=== PATIENT | female | born 1945 | race African-American/Black ===

== ENCOUNTER 2022-01-17 10:46 | Outpatient (CLI) | payer MEDICARE ==
[2022-01-17 21:44] LABS: SARS-CoV-2 PCR by NAA Not Detected (NotDetected)
== END 2022-01-17 10:47 | disposition home or self-care (01) ==
LOC: CSHLAB 10:46
PROVIDERS: ATTEND Internal Medicine Gastroenterology
DX: Z20.822 Contact with and (suspected) exposure to COVID-19 (principal)
CPT/HCPCS: U0003; U0005

== ENCOUNTER → 2022-01-22 | Day surgery (SDC) | payer MEDICARE ==
[2022-01-17 13:42] VITALS: BMI 31.3
[~2022-01-22] MED LIST: Lidocaine 1% MPF 2 ML VIAL ONE; PROPOFOL 20 ML ONE
== END ==
LOC: CSHSDC 10:06
PROVIDERS: ATTEND Internal Medicine Gastroenterology
PROC: 0DB68ZZ Excision of Stomach, Via Natural or Artificial Opening Endoscopic (ICD-10-PCS; principal; 2022-01-22)
DX: K25.9 Gastric ulcer, unspecified as acute or chronic, without hemorrhage or perforation (principal); K29.70 Gastritis, unspecified, without bleeding; K44.9 Diaphragmatic hernia without obstruction or gangrene; M06.9 Rheumatoid arthritis, unspecified; F32.A Depression, unspecified; I10 Essential (primary) hypertension; E78.5 Hyperlipidemia, unspecified
CPT/HCPCS: 88305; J2704

== ENCOUNTER 2022-10-01 10:09 | Outpatient (CLI) | payer MEDICARE | END 2022-10-01 10:10 | disposition home or self-care (01) | LOC: CSHMRI 10:09 | PROVIDERS: ATTEND Podiatrist | DX: S99.812A Other specified injuries of left ankle, initial encounter (principal); S93.492A Sprain of other ligament of left ankle, initial encounter; S93.412A Sprain of calcaneofibular ligament of left ankle, initial encounter; M25.472 Effusion, left ankle ==

== ENCOUNTER 2022-10-30 10:51 | Outpatient (CLI) | payer MEDICARE | END 2022-10-30 10:52 | disposition home or self-care (01) | LOC: CSHRAD 10:51 | PROVIDERS: ATTEND Internal Medicine | DX: Z01.810 Encounter for preprocedural cardiovascular examination (principal) | CPT/HCPCS: 93005; 93010 ==

== ENCOUNTER 2024-10-20 05:03 | Emergency (ER) | payer MEDICARE ==
[2024-10-20] MEDS ORDERED: Ketorolac Tromethamine 30 MG (1 mL) VIAL ONE (05:23)
== END 2024-10-20 07:16 | disposition home or self-care (01) ==
LOC: CSHERS 05:03
DX: M54.16 Radiculopathy, lumbar region (principal); I10 Essential (primary) hypertension; Z59.02 Unsheltered homelessness
CPT/HCPCS: 96372; 99283; J1885

== ENCOUNTER 2025-08-14 11:16 | Inpatient (IN) | payer MEDICARE ==
[2025-08-14 12:09] LABS: #Basophils Less than 0.03 10x3/uL (0.0-0.2); #Eosinophils Less than 0.03 10x3/uL (0.0-0.5); #Monocytes 0.44 10x3/uL (0.0-1.1); #Neutrophils 3.59 10x3/uL (1.5-8.4); %Basophils 0.4 % (0.0-2.0); %Eosinophils 0.0 % (0.0-6.0); %Lymphocytes 13.8 % (18.0-47.0); %Monocytes 9.3 % (0.0-10.0); %Neutrophils 76.3 % (40.0-75.0); Hematocrit 34.8 % (34.9-44.5); Hemoglobin 12.2 g/dL (12.0-15.5); Mean Corpuscular Hemoglobin 30.8 pg (27.0-33.0); Mean Corpuscular Volume 87.9 fL (81.6-98.3); Platelet Count 307 10x3/uL (150-450); Red Blood Cell (RBC) Count 3.96 10x6/uL (3.90-5.03); White Blood Cell (WBC) Count 4.71 10x3/uL (3.5-10.5)
[2025-08-14 12:25] LABS: Acetaminophen Less than 10 mcg/mL (Less than 10); Lipase 75 U/L (8-78); Salicylate Less than 8.0 mg/dL (Less than 8.0)
[2025-08-14 12:26] LABS: ALT (SGPT) 11 U/L (Less than 34); AST (SGOT) 25 U/L (11-34); Albumin 3.9 g/dL (3.1-4.5); Alkaline Phosphatase 44 U/L (40-110); Anion Gap 25 mmol/L (10-20); BUN (Urea Nitrogen) 14 mg/dL (9.8-20.1); Bilirubin, Total 1.1 mg/dL (0.3-1.2); Calc. Creatinine Clearance 0 mL/min (70-130); Calcium 10.0 mg/dL (7.8-10.44); Carbon Dioxide 15 mmol/L (23-31); Chloride 105 mmol/L (98-107); Globulin 3.4 g/dL (2.4-3.5); Glucose 65 mg/dL (83-110); Potassium 5.2 mmol/L (3.5-5.1); Sodium 140 mmol/L (136-145)
[2025-08-14 12:32] LABS: Magnesium 1.7 mg/dL (1.6-2.6)
[2025-08-14 12:44] LABS: Free T4 (Free Thyroxine) 0.97 ng/dL (0.70-1.48); Thyroid Stimulating Hormone 1.9117 uIU/mL (0.35-4.94)
[2025-08-14] MEDS ORDERED: Famotidine/PF 20 mg/2ml Vial ONE (13:03)
[2025-08-14 15:33] LABS: Glucose, Urine (Dipstick) 100 mg/dL (Negative); Leukocyte 500 (Negative); Protein, Urine (Dipstick) 30 mg/dl (Neg-Trace); Specific Gravity, Urine 1.020 (1.005-1.030)
[2025-08-14 15:41] LABS: Cocaine Metabolite Screen Negative (Negative); THC/Cannabinoid Screen Negative (Negative); Tricyclic Screen Negative (Negative)
[2025-08-14 16:08] LABS: CAUTI Indications for Culture Pelvic or flank pain
[2025-08-14 16:09] LABS: Bacteria/HPF 2+ HPF (None Seen)
[2025-08-14 16:10] LABS: Mucous/LPF 3+ LPF (<2+)
[2025-08-14 16:13] LABS: Urine Culture Reflex Yes Yes
[2025-08-14] MEDS ORDERED: cefTRIAXone (ROCEPHIN) 1 GM VIAL ONE (16:26)
[2025-08-14] MEDS ORDERED: Ondansetron PF 4 MG/2 ML Vial IVP PRN (17:30)
[2025-08-14] MEDS ORDERED: Melatonin 3 MG TAB PO PRN (17:30)
[2025-08-14] MEDS: Famotidine/PF 20 mg/2ml Vial SLOW IVP SCH (20:21)
[2025-08-14] MEDS: oxyCODONE 5 MG TAB PO PRN (20:29)
[2025-08-14 22:16] VITALS: BMI 19.3
[2025-08-15] MEDS: Acetaminophen 325 MG TAB PO PRN (03:38)
[2025-08-15 04:55] LABS: #Basophils Less than 0.03 10x3/uL (0.0-0.2); #Eosinophils 0.06 10x3/uL (0.0-0.5); #Monocytes 0.65 10x3/uL (0.0-1.1); #Neutrophils 2.46 10x3/uL (1.5-8.4); %Basophils 0.4 % (0.0-2.0); %Eosinophils 1.2 % (0.0-6.0); %Lymphocytes 34.4 % (18.0-47.0); %Monocytes 13.3 % (0.0-10.0); %Neutrophils 50.5 % (40.0-75.0); Hematocrit 36.3 % (34.9-44.5); Hemoglobin 12.7 g/dL (12.0-15.5); Mean Corpuscular Hemoglobin 30.9 pg (27.0-33.0); Mean Corpuscular Volume 88.3 fL (81.6-98.3); Platelet Count 320 10x3/uL (150-450); Red Blood Cell (RBC) Count 4.11 10x6/uL (3.90-5.03); White Blood Cell (WBC) Count 4.88 10x3/uL (3.5-10.5)
[2025-08-15 05:13] LABS: ALT (SGPT) 8 U/L (Less than 34); AST (SGOT) 22 U/L (11-34); Albumin 3.6 g/dL (3.1-4.5); Alkaline Phosphatase 45 U/L (40-110); Anion Gap 16 mmol/L (10-20); BUN (Urea Nitrogen) 10 mg/dL (9.8-20.1); Bilirubin, Total 1.0 mg/dL (0.3-1.2); Calc. Creatinine Clearance 57 mL/min (70-130); Calcium 9.2 mg/dL (7.8-10.44); Carbon Dioxide 23 mmol/L (23-31); Chloride 102 mmol/L (98-107); Globulin 3.4 g/dL (2.4-3.5); Glucose 87 mg/dL (83-110); Potassium 4.2 mmol/L (3.5-5.1); Sodium 137 mmol/L (136-145)
[2025-08-15] MEDS: Megestrol Acetate 400 MG/10 ML UDCUP PO SCH (09:38)
[2025-08-15] MEDS: Enoxaparin 30 MG (0.3 mL) SYRINGE SC SCH (09:38)
[2025-08-15] MEDS: cefTRIAXone\\ROCEPHIN 1 GM in Sodium Chloride 0.9% 100 ML IVPB SCH (21:44)
[2025-08-16] MEDS: Lactulose 20 GM (30 mL) UDCUP PO PRN (09:00)
[2025-08-16 14:41] VITALS: BMI 19.3
[2025-08-16] MEDS: Mirtazapine 15 MG TAB PO SCH (20:25)
[2025-08-17] MEDS: Enoxaparin 60 MG (0.6 mL) SYRINGE SC SCH (21:21)
[2025-08-18 04:35] LABS: Anion Gap 13 mmol/L (10-20); BUN (Urea Nitrogen) 5 mg/dL (9.8-20.1); Calc. Creatinine Clearance 63 mL/min (70-130); Calcium 9.2 mg/dL (7.8-10.44); Carbon Dioxide 24 mmol/L (23-31); Chloride 102 mmol/L (98-107); Glucose 87 mg/dL (83-110); Potassium 2.7 mmol/L (3.5-5.1); Sodium 136 mmol/L (136-145)
[2025-08-18 04:42] LABS: Hematocrit 35.7 % (34.9-44.5); Hemoglobin 12.7 g/dL (12.0-15.5); Mean Corpuscular Hemoglobin 31.1 pg (27.0-33.0); Mean Corpuscular Volume 87.3 fL (81.6-98.3); Platelet Count 317 10x3/uL (150-450); Red Blood Cell (RBC) Count 4.09 10x6/uL (3.90-5.03); White Blood Cell (WBC) Count 4.28 10x3/uL (3.5-10.5)
[2025-08-18 04:45] LABS: Nucleated RBC (Manual Ct) 3 % (0)
[2025-08-18 04:46] LABS: MDiff Complete? YES; Platelet Adequacy Comment Appears Adequate; RBC Morphology Within Normal Limits
[2025-08-18] MEDS: Potassium Bicarbonate/Cit Ac 20 MEQ TAB PO SCH (09:37)
[2025-08-18] MEDS: Potassium Chloride 20 MEQ in Premix 1 BAG IVPB SCH (11:02)
[2025-08-18 12:40] VITALS: BP 190/108; TEMP 98.4
[2025-08-18 14:29] LABS: Anion Gap 16 mmol/L (10-20); BUN (Urea Nitrogen) 4 mg/dL (9.8-20.1); Calc. Creatinine Clearance 67 mL/min (70-130); Calcium 9.2 mg/dL (7.8-10.44); Carbon Dioxide 19 mmol/L (23-31); Chloride 105 mmol/L (98-107); Glucose 87 mg/dL (83-110); Potassium 3.6 mmol/L (3.5-5.1); Sodium 136 mmol/L (136-145)
== END 2025-08-18 16:01 | DRG 689 ==
LOC: CSHERS 11:16 → CSHTELE 17:05
PROVIDERS: ADMIT Internal Medicine; ATTEND Internal Medicine
DX: N39.0 Urinary tract infection, site not specified (principal); E43 Unspecified severe protein-calorie malnutrition; E87.20 Acidosis, unspecified; Z98.890 Other specified postprocedural states; I10 Essential (primary) hypertension; E78.5 Hyperlipidemia, unspecified; K21.9 Gastro-esophageal reflux disease without esophagitis; F32.A Depression, unspecified; E16.2 Hypoglycemia, unspecified; R11.2 Nausea with vomiting, unspecified; E88.89 Other specified metabolic disorders; Z86.711 Personal history of pulmonary embolism; M19.90 Unspecified osteoarthritis, unspecified site; K59.09 Other constipation; R63.0 Anorexia; R53.81 Other malaise; E87.6 Hypokalemia; Z79.899 Other long term (current) drug therapy
CPT/HCPCS: 36415; 36416; 71275; 80048; 80053; 80306; 80307; 81001; 83605; 83690; 83735; 84439; 84443; 85025; 87077; 87086; 87186; 93005; 96374; 96375; J0696; J1308; J1650; J3480; J7042